=== PATIENT | female | born 1970 | race Caucasian/White ===

== ENCOUNTER → 2021-10-14 15:09 | Outpatient (BNVA) | payer OTHER, SELFPAY | PROVIDERS: PCP Internal Medicine; Visit Provider Nurse Practitioner Family | DX: Z13.89 Encounter for screening for other disorder (principal) ==

== ENCOUNTER 2025-04-22 10:29 | Outpatient (REF) | payer OTHER, SELFPAY ==
[2025-04-22 13:23] LABS: Appearance Urine Turbid; Glucose Urine UA Negative (Negative); PH 6.5 (5.0-9.0); Specific Gravity - Urine >= 1.030 (1.005-1.025)
[2025-04-22 13:33] LABS: MANUAL DIFF FLAG NO
[2025-04-22 13:41] LABS: Hematocrit 43.5 % (37.0-47.0); Hemoglobin 13.7 g/dl (12.0-16.0); Imm Gran Abs Auto 0.01 X10*3/uL (0.00-0.03); Imm Gran Pct Auto 0.2 % (0.0-0.4); Lymphocytes Absolute Auto 1.3 X10*3/uL (1.2-4.9); Mean Corpuscular HGB Conc 31.5 g/dl (31.0-35.0); Mean Corpuscular Hemoglobin 28.4 pg (27.0-33.0); Mean Corpuscular Volume 90.2 fL (80.0-98.0); NRBC Abs Auto 0.000 X10*3/uL (0.0-0.012); NRBC Pct Auto 0.0 /100WBC (0.0-0.2); Platelet Count 246 X10*3/uL (160-400); Red Blood Count 4.82 X10*6/uL (4.20-5.50); White Blood Count 5.4 X10*3/uL (4.8-10.8)
[2025-04-22 14:03] LABS: Alanine Aminotransferase 28 U/L (0-31); Albumin Level 4.5 g/dL (3.5-5.0); Alkaline Phosphatase 77 U/L (39-117); Anion Gap 10 (12-20); Aspartate Amino Transferase 25 U/L (5-31); Blood Urea Nitrogen 18 mg/dL (9-16); Calcium 8.9 mg/dL (8.4-10.2); Carbon Dioxide 29 mmol/L (22-29); Chloride 106 mmol/L (96-108); Cholesterol 199 mg/dL (<200); Estimated Glomerular Filt Rate > 60; HDL Cholesterol 46 mg/dL (>40); Potassium 4.5 mmol/L (3.3-5.1); Sodium 140 mmol/L (135-145); Total Protein 7.4 g/dL (6.5-8.0); Triglycerides 97 mg/dL (<150)
--- OUTSIDE RECORDS SUMMARY | 2025-04-22 14:24 | XMS_ITS | Clinical Summary ---
Author Organization [address] Address [address] [place] [address] Phone Care Team Providers Care Yard Jacker Name Role Phone Kannan Yuan MD Primary Care Provider [phone] Allergies Active Allergy Reactions Criticality Noted Date Comments Other 04/13/2020 Seasonal Medications hydrOXYzine HCL (ATARAX) 25 mg tablet TAKE 1-2 TABLETS BY MOUTH TWICE A DAY NEEDED 10/31/2023 Active albuterol sulfate (ProAir RespiClick) 90 mcg/actuation aerosol powdr breath activated Inhale by mouth. Active acetaminophen (TYLENOL) 500 mg tablet Take 1 Tablet by mouth every 6 hours as needed. Active fluticasone (VERAMYST) 27.5 mcg/actuation nasal spray 2 Sprays by Nasal route daily. 12/05/2023 Active vortioxetine (Trintellix) 20 mg tablet TAKE 1 TABLET BY MOUTH EVERY DAY 05/15/2022 Active cetirizine (ZyrTEC) 10 mg tablet Take 10 mg by mouth daily. Active semaglutide (Wegovy) 1.7 mg/0.75 mL injection penIndications:H ypothyroidism, unspecified type,Class 3 severe obesity without serious comorbidity with body mass index (BMI) of 60.0 to 69.9 in adult, unspecified obesity type (CMS/HCC V24, CMS/HCC V28) Use 1.7mg once weekly 3 mL 5 11/04/2024 Active levothyroxine (SYNTHROID, LEVOTHROID) 25 mcg tablet TAKE 1 TABLET (25 MCG TOTAL) BY MOUTH 1 (ONE) TIME EACH DAY. FOR 60 DAYS 90 tablet 1 02/11/2025 09/10/19 26 Active Active Problems Problem Noted Date Diagnosed Date Low iron 01/29/2019 Blood pressure elevated without history of HTN 1 Depression 03/18/2018 Abnormal blood sugar 2017 Dyslipidemia 2017 Obesity 2017 Obstructive sleep apnea 2017 Overview (05/20/2024): [facility] Polysomnogram: Date 02/24/2021; Wt 405#; BMI 65; SE 58%; SM 79%; REM 0%; RDI 68 (AHI 57), Central apneas 1; Obstructive apneas 44; Mixed apneas 0; hypopneas 212; RERAs 51; average oxygen saturation 95% (lowest 88% - without saturations <88% for 5% or more of study); PLMs 0. - Obstructive Sleep Apnea - severe overall (no REM sleep); mostly hypopneas and obstructive apneas; without sleep related hypoventilation by 2020 polysomnogram. Seasonal allergies 2017 Vitamin D deficiency 2017 Seizure disorder ([facility] V24, [facility] V28) 01/2017 Congenital hydrocephalus ([facility] V24, [facility] V 28) 06/17/2012 Hydrocephalus ([facility] V24, [facility] V28) 012 Encounters Date Type Department Care Team Description 04/13/2025 Results Follow-Up Endocrinology - [address] [phone] Sue Jenkins PA 04/03/2025 Telephone Endocrinology [address] [phone] Sue Jenkins PA from Last 3 Months Immunizations Immunization Administration Dates Next Due Influenza, Unspecified 02/27/2022 Surgical History Surgery Date Site/Laterality Comments BREAST BIOPSY 2010 Left PROCEDURE: BX BREAST; PERC NEEDLE CORE W/IMAG GUID Family History Medical History Relation Name Comments Breast cancer Neg Hx Social History Tobacco Use Types Packs/Day Years Used Date Smoking Tobacco: Never Smokeless Tobacco: Never Alcohol Use Standard Drinks/Week Comments Yes 0 (1 standard drink = 0.6 oz pur e alcohol) Comments No Sex and Gender Information Value Date Recorded Sex Assigned at Not on file Legal Sex Female 8:05 AM EST Gender Identity Not on file Sexual Orientation Not on file Obstetrics History Para Term AB IAB SAB Ectopic Multiple Livin g Live Births 2 2 2 2 Date Outcome GA Total Labor Labor/2nd/3rd Weight Sex Type Anes PTL April A1 A5 Name Clin Term Term Last Filed Vital Signs Vital Sign Reading Time Taken Comments Blood Pressure 153/91 11/04/2024 4:40 PM EDT Pulse 64 11/04/2024 4:40 PM EDT Temperature 36.9 C (98.4 F) 11/04/2024 4:40 PM EDT Respiratory Rate 17 11/04/2024 4:40 PM EDT Oxygen Saturation 98% 09/04/2024 4:22 PM EDT Inhaled Oxygen Concentration - - Weight 176 kg (389 lb) 11/04/2024 4:40 PM EDT Height 167.6 cm (5' 6 ) 11/04/2024 4:40 PM EDT Body Mass Index 62.79 11/04/2024 4:40 PM EDT Plan of Treatment Upcoming Encounters Date Type Department Care Team (Late st Contact Info) Description 09/10/2025 3:15 PM EDT Office Visit Internal Medicine - [address] [place] [phone] Kannan Yuan MD [address] [place] [phone] Health Maintenance Due Date Last Done Comments Colorectal Cancer Screening: Colonoscopy 1970 Hepatitis B Vaccines (1 of 3 - 19+ 3-dose series) 10/31/1987 Cervical Cancer Screening: Pap Smear 1989 Pneumococcal Vaccine: 50+ Years (1 of 1 - PCV) 2018 RSV Immunization Adult Patients (1 - Risk 50-74 years 1-dose series) 2018 HIV Screening 05/27/2022 Hepatitis C Screening 05/27/2022 Social Influencers of Health Screening 05/27/2022 Depression Screening 06/18/2024 Breast Cancer Screening 09/12/2026 09/13/19 25, 02/07/2023, 01/25/2022, Additional history exists Cholesterol Screening (Lipid Panel) 09/12/2029 09/12/2024, 12/04/2023 DTaP,Tdap,and Td Vaccines (2 - Td or Tdap) 02/25/2035 02/25/2025 Zoster Vaccines Completed 07/19/2020, 04/17/2020 COVID-19 Vaccine Completed 02/25/2025, , 08/26/2022, Additional history exists Influenza Vaccine Completed 02/25/2025, , 04/11/2023, Additional history exists HIB Vaccines Aged Out No longer eligi ble based on patient's age to complete this topic HPV Vaccines Aged Out No longer eligi ble based on patient's age to complete this topic Hepatitis A Vaccines Aged Out No long er eligible based on patient's age to complete this topic IPV Vaccines Aged Out No longer eligi ble based on patient's age to complete this topic MMR Vaccines Aged Out No longer eligi ble based on patient's age to complete this topic Meningococcal ACWY Vaccine Aged Out N o longer eligible based on patient's age to complete this topic Meningococcal B Vaccine Aged Out No l onger eligible based on patient's age to complete this topic RSV Immunization Patients Under 20 months Aged Out No longer eligible based on patient's age to complete this topic Varicella Vaccines Aged Out No longer eligible based on patient's age to complete this topic Procedures Procedure Name Priority Date/Time Associated Diagnosis Comments THYROID STIMULATING HORMONE WITH REFLEX TO FREE T4 AND FREE T3 Routine 04/09/2025 10:46 AM EDT Hypothyroidism, unspecified type LIPID PANEL WITH REFLEX TO DIRECT LDL Routine 09/12/2024 3:00 PM EDT Primary hypertension Hypercholesterolemia Acquired hypothyroidism MG MAMMO DIGITAL SCREENING W JUSTO BILAT Routine 09/12/2024 2:37 PM EDT Encounter for screening mammogram for breast cancer from Last 3 Months or Most Recently Relevant to Health Maintenance Results * Thyroid stimulating hormone with reflex to free t4 and free t3 (04/09/2025 10:46 AM EDT) TSH 2.50 0.40 - 4.00 mcIU/mL LAB CHEMISTRY METHOD 04/09/2025 2:[address] [facility] Blood Venous blood specimen / Unknown Venipuncture / Unknown 04/09/2025 10:46 AM EDT 04/09/2025 10:46 AM EDT us Sue VALLADARES LAB BLOOD ORDERABLES Final Resul t [facility] [address] [place] [address], [place] [phone] * (ABNORMAL) Lipid panel with reflex to direct LDL (09/12/2024 3:00 PM EDT) Cholesterol 229(H) 0 - 200 mg/dL LAB CHEMISTRY METHOD 09/12/2024 6:[address] [facility] Triglycerides 84 0 - 150 mg/dL LAB CHEMISTRY METHOD 09/12/2024 6:[address] [facility] HDL 59 >=40 mg/dL LAB CHEMISTRY METHOD 09/12/2024 6:[address] [facility] LDL Calculated 153(H) 0 - 100 mg/dL LAB CHEMISTRY METHOD 09/12/2024 6:[address] [facility] VLDL Cholesterol Luke 16.8 mg/dL LAB CHEMISTRY METHOD 09/12/2024 6:[address] [facility] Non HDL Chol. (LDL+VLDL) 170(H) <145 mg/dL LAB CHEMISTRY METHOD 09/12/2024 6:[address] [facility] Chol/HDL Ratio 3.9 0.0 - 4.4 LAB CHEMISTRY METHOD 09/12/2024 6:55 PM [facility] Blood Venous blood specimen / Unknown Venipuncture / Unknown 09/12/2024 3:00 PM EDT 09/12/2024 3:00 PM EDT us Kannan Yuan MD LAB BLOOD ORDERABLES Final Resul t [facility] [address] [place] [address], [place] [phone] * MG Mammo Digital Screening w Justo bilat (09/12/2024 2:37 PM EDT) Anatomical Region Laterality Modality Breast Bilateral Mammography 09/15/2024 8:16 AM EDT Impressions 09/15/2024 8:22 AM EDT Benign. BI-RADS CATEGORY: 1 - NEGATIVE RECOMMENDATION: Screening bilateral mammogram is recommended in 1 year. Mammo Location: [facility], [address] [place] [address], [address], . -------- FINAL REPORT -------- Dictated By: Ana Pendleton Dictated Date: 09/15/2024 08:16 ET Assigned Physician: Ana Pendleton Reviewed and Electronically Signed By: Ana Pendleton Signed Date: 09/15/2024 08:22 ET Workstation ID: [id number] Transcribed By: Self Edit Transcribed Date: 09/15/2024 08:16 ET Narrative 09/15/2024 8:22 AM EDT CLINICAL: 53 years old, Female, routine annual exam. COMPARISON: Mammograms dating back to 01/20/2021 with most recent of 02/07/2023. TECHNIQUE: Bilateral MLO and CC views were obtained digitally with 3-D mammogram (digital breast tomosynthesis). Computer-aided detection was utilized in evaluation of this exam (CAD). FINDINGS: There is no evidence of suspicious mass or architectural distortion. No worrisome calcifications are evident. There is a biopsy clip in the retroareolar left breast. There has been no significant change from prior exam(s). BREAST DENSITY: B - There are scattered areas of fibroglandular density. Procedure Note Ana Pendleton MD - 09/15/2024 CLINICAL: 53 years old, Female, routine annual exam. COMPARISON: Mammograms dating back to 01/20/2021 with most recent of02/07/2023. TECHNIQUE: Bilateral MLO and CC views were obtained digitally with 3-Dmammogram (digital breast tomosynthesis). Computer-aided detection wasutilized in evaluation of this exam (CAD). FINDINGS: There is no evidence of suspicious mass or architectural distortion. Noworrisome calcifications are evident. There is a biopsy clip in theretroareolar left breast. There has been no significant change from priorexam(s). BREAST DENSITY: B - There are scattered areas of fibroglandular density. IMPRESSION: Benign. BI-RADS CATEGORY: 1 - NEGATIVE RECOMMENDATION: Screening bilateral mammogram is recommended in 1 year. Mammo Location: [facility], [address] [place] [address], [address], . -------- FINAL REPORT -------- Dictated By: Ana Pendleton Dictated Date: 09/15/2024 08:16 ET Assigned Physician: Ana Pendleton Reviewed and Electronically Signed By: Ana Pendleton Signed Date: 09/15/2024 08:22 ET Workstation ID: [id number] Transcribed By: Self Edit Transcribed Date: 09/15/2024 08:16 ET Bev Paniagua MD IMG BI PROCEDURES Final Resu lt from Last 3 Months or Most Recently Relevant to Health Maintenance Insurance [employer] Care Teams Yard Jacker Relationship Specialty Start Date End Date Kannan Yuan MD [address] [place] [address] PCP - General Internal Medicine 07/28/24
--- OUTSIDE RECORDS SUMMARY | 2025-04-22 14:24 | XMS_ITS | Encounter Summary ---
Author Organization [facility] Address [address] [place] [address] Care Team Providers Care Ear Nose Throat Surgeon Name Role Phone Kannan Yuan MD Primary Care Provider [phone] Reason for Visit * Reason Onset Date Comments provider call back 04/03/2025 Encounter Details Date Type Department Care Team (Late st Contact Info) Description 04/03/2025 Telephone Endocrinology - [place] [address], [place] [phone] Sue Jenkins PA [address], [place] Social History Tobacco Use Types Packs/Day Years Used Date Smoking Tobacco: Never Smokeless Tobacco: Never Alcohol Use Standard Drinks/Week Comments Yes 0 (1 standard drink = 0.6 oz pur e alcohol) Comments No Sex and Gender Information Value Date Recorded Sex Assigned at Not on file Legal Sex Female 8:05 AM EST Gender Identity Not on file Sexual Orientation Not on file documented as of this encounter Progress Notes * Shayy Kern RN - 04/03/2025 4:24 PM EDT Called patient C/o increase hair shedding TSH to be drawn Will await results * Shanelle Hackett - 04/03/2025 1:25 PM EDT Endocrine Call Primary endocrine provider: Sue [place] PA-C Is the endocrine provider in the office toady?: no Who is calling? The patient. If not the patient or parent/guardian please check for authorization to share/verbal release. Why is the person calling? Symptoms/side effects. Symptom: Patient is taking levothyroxine 25 mcg, and states she doesn't feel it is working. She is still losing a lot of hair, and is wondering if she can have her dose increased? She is wondering if taking an additional pill or half a pill would help. Patient is requesting call back to advised provider may want to see her. CLAUDETTE October 2024. NOT chestpain, shortness of breath, palpitations, severe dizziness. Please forward to endocrine nurse pool (p [phone]). documented in this encounter Plan of Treatment Upcoming Encounters Date Type Department Care Team ([facility] st Contact Info) Description 09/10/2025 3:15 PM EDT Office Visit Internal Medicine - [place] [address] [phone] Kannan Yuan MD [address] [place] [phone] documented as of this encounter Visit Diagnoses Not on filedocumented in this encounter Care Teams Ear Nose Throat Surgeon Relationship Specialty Start Date End Date Kannan Yuan MD [address] [place] [id number] PCP - General Internal Medicine 07/28/24 documented as of this encounter
== END 2025-04-22 10:30 | disposition home or self-care (01) ==
LOC: HO.HMGCLDS 10:29
PROVIDERS: PCP Internal Medicine; Visit Provider Internal Medicine
DX: E66.01 Morbid (severe) obesity due to excess calories (principal); K42.9 Umbilical hernia without obstruction or gangrene; E03.9 Hypothyroidism, unspecified; J45.909 Unspecified asthma, uncomplicated; R03.0 Elevated blood-pressure reading, without diagnosis of hypertension; Z68.44 Body mass index [BMI] 60.0-69.9, adult; Z79.890 Hormone replacement therapy; Z79.899 Other long term (current) drug therapy
CPT/HCPCS: 36415; 80053; 80061; 81001; 82306; 84443; 85025; 96127

== ENCOUNTER 2025-04-22 10:29 | Outpatient (AMB) | payer OTHER, SELFPAY ==
--- OUTSIDE RECORDS SUMMARY | 2024-07-03 03:30 | XMS_ITS ---
[facility] Organization [facility] [place] Address [address] [place] [address] Care Team Providers Care Zookeeper Name Role Phone Kwabena DANIELSON, Kannan Primary Care Provider Unavailab Janet Jorge Unavailable [phone] Encounters Encounter Location Date Provider Diagnosis [address] [place] [address] 07/03/2024 Janet Juarez Plan Of Treatment No Information Progress Notes * ARCHIEHerve JACKSONalmamagdiDOB:1970 (54 yo F)Acc No.[id number]:07/03/2024 Progress Notes Patient: Chapis PHELPS Provider: Omero Juarez DPM :1970 A ge:53 Y S ex:Female Date:07/03/2024 Address:[address] [place], [place] [id number] Pcp:Kannan Yuan MD Subjective: * Chief Complaints: * * Medical History: Objective: * Vitals: Assessment: Plan: * Treatment: * Images: * The named appointment provid er may or may not be the originator of this progress note, and it is not deemed complete until electronically signed by the appointment provider. Sign off status: Pending * Provider: Omero Juarez DPM Date: 0 07/03/2024 Generated for Tierney hanley/Lamar/Yosefitting on: 06/22/2024 12:14 PM EST
[2025-04-22 10:33] VITALS: BP 130/94; PULSE 66; RESP 16; TEMP 36.3; O2SAT 97; BMI 63.1
--- NOTE | 2025-04-22 10:33 | MHC.PC.OV ---
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 Intake Note: Pt is here today for New patient. Pt states that she had a fall last week. Allergies No Known Allergies Allergy (Verified 04/22/25 10:38) Medication List - Last Reconciled 04/22/25 by Dione Hernandez MD acetaminophen (Tylenol) 325 mg PO QID PRN albuterol sulfate 90 mcg/actuation (Ventolin HFA) 2 puffs inhalation Q6H PRN calcium citrate-vitamin D3 315 mg-6.25 mcg (250 unit) (Citracal + Vitamin D Maximum) 1 tab PO DAILY fluticasone propionate 50 mcg/actuation (Allergy Relief (fluticasone)) 1 spray intranasal DAILY hydroxyzine HCl 25 mg PO BEDTIME levothyroxine 25 mcg PO DAILY vortioxetine (Trintellix) 20 mg PO DAILY Tobacco use date assessed: 04/22/25 Dental Screening Dental Screen Date: 04/22/25 Did you have a dental visit in the last 12 months?: Yes Did you have a dental problem in the last 6 months where you did not have access to dental care?: No Was dental information given to patient?: Patient has dentist HPI 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 Pt complains of allergic umbilical hernia and would like to be referred to surgeon to discuss the repair. Past medical history includes chronic depression controlled on current medications and patient is established with Psychiatry. She has been taking levothyroxine for hypothyroidism and albuterol on and off for mild asthma. Patient has been trying to lose weight for many years trying different programs including weight watchers. Patient has been decreasing caloric intake and increasing exercise for 6 months. She took Wegovy for few months and lost weight but had difficulties getting it through her insurance. [facility] Medical History Asthma Hx of screening mammography Normal pelvic exam Morbid obesity NICOLASA on CPAP Urinary incontinence Depression Surgical History Hx of colonoscopy No pertinent past surgical history Family History (Updated 04/22/25 @ 11:08 by Dione Hernandez MD) Father HTN (hypertension) Mental health disorder Vascular dementia, Onset Age: 70 Mother Heart problem Social History Housing: House Alcohol intake: never Patient Tobacco Use Status: Never used Tobacco e-Cigarette/Vaping Use: Never Used service: No Current occupational status: retired Cognitive needs: No Hearing needs: No Vision needs: Yes Questionnaire PHQ-9 Over the last 2 weeks, how often have you been bothered by any of the following problems? 1. Little interest or pleasure in doing things: several days 2. Feeling down, depressed, or hopeless: several days 3. Trouble falling or staying asleep, or sleeping too much: not at all 4. Feeling tired or having little energy: more than half the days 5. Poor appetite or overeating: not at all 6. Feeling bad about yourself - or that you are a failure or have let yourself or your family down: several days 7. Trouble concentrating on things, such as reading the newspaper or watching television: several days 8. Moving or speaking so slowly that other people could have noticed. Or the opposite - being so fidgety or restless that you have been moving around a lot more than usual: not at all 9. Thoughts that you would be better off or of hurting yourself in some way: several days Total score: 7 Depression Screening Interpretation: Negative Depression Screening Done: Yes 39694 - PHQ-9 Billing: Yes Source: Developed by Drs. Olvin Chester, Margarette Santiago, Kt Hernandez and colleagues, with an educational juan a from [employer]. Thrive Questionnaire Date Thrive assessed: 04/22/25 I am a: Patient What is your living situation today?: I have a steady place to live Within the past 12 months, did the food you bought not last and you didn't have the money to get more?: Sometimes True Within the past 12 months, did you worry whether your food would run out before you got money to buy more?: Sometimes True Do you have trouble paying for medicines?: Yes Do you have trouble getting transportation to medical appointments?: No Do you have trouble paying your heating and electricity bill?: No Do you have trouble taking care of your child, family member or friend?: No Do you have trouble with day-to-day activities such as bathing, preparing meals, shopping, managing finances, etc.?: No Are you currently unemployed and looking for a job?: Yes Are you interested in more education?: No THRIVE Score: 2 AUDIT C Alcohol Use Questionnaire (AUDIT-C) 1. How often do you have a drink containing alcohol?: Monthly or less 2. How many drinks containing alcohol do you have on a typical day when you are drinking?: 1 or 2 3. How often do you have six or more drinks on one occasion?: Never Total Score: 1 DMITRI-7 AMB Questionnaire DMITRI-7 Date DMITRI - 7 assessed: 04/22/25 Feeling nervous, anxious, or on edge: 1 = Several days Not being able to stop or control worryin = Several days Worrying too much about different things: 1 = Several days Trouble relaxin = Several days Being so restless that it is hard to sit still: 0 = Not at all Becoming easily annoyed or irritable: 0 = Not at all Feeling afraid as if something awful might happen: 0 = Not at all Total DMITRI-7 score (0-4 normal; 5-9 mild; 10-14 moderate; 15-21 severe): 4 Source: Developed by Drs. Olvin Chester, Margarette Santiago, Kt Hernandez and colleagues, with an educational juan a from [employer]. DMITRI-7 Assessment Billing DMITRI-7 Assessment Tool: DMITRI-7 Assessment 70489 Review of Systems Const All systems reviewed & are unremarkable except as noted in HPI and below Eyes Reports no additional complaints ENT Reports no additional complaints Card Reports no additional complaints Resp Reports no additional complaints GI Reports no additional complaints Reports no additional complaints Physical exam (Primary Care) Vital Signs: Last Vital Signs Temp 97.4 F 04/22/25 10:33 Pulse 66 04/22/25 10:33 Resp 16 04/22/25 10:33 BP 130/94 H 04/22/25 10:33 Pulse Ox 97 04/22/25 10:33 Oxygen Delivery Method Room Air 04/22/25 10:33 BMI result Body Mass Index 63.1 Tobacco/Smoking Status: Tobacco use Status Tobacco use date assessed 04/22/25 04/22/25 10:46 Patient Tobacco Use Status Never used Tobacco 04/22/25 10:46 e-Cigarette/Vaping Use Never Used 04/22/25 10:46 PHQ-9: PHQ-9 Score PHQ-9: Total score 7 04/22/25 11:13 Depression Screening Interpretation: Negative Thrive Assessment: Date of Thrive Assessment Date Thrive assessed 04/22/25 04/22/25 10:46 Const General: no acute distress HENMT Head: Yes normal to inspection Face and sinus: Yes normal facial exam Mouth: Normal oral and palatal mucosa present Throat: Yes posterior oropharynx normal Eyes General: appearance normal, both eyes and all related structures Neck Neck: Yes no lymphadenopathy and Yes supple Resp Effort & Inspection: normal respiratory effort Auscultation: clear to auscultation bilaterally Cardio Rhythm: regular rhythm Heart sounds: S1 normal heart sound present and S2 normal heart sound present GI Other: Large umbilical hernia reducible Inspection: Yes normal to inspection Palpation (GI): Soft to palpation Percussion: Yes normal to percussion Auscultation: normal bowel sounds Coding Level of Care Code New Pt Prev Care 40-64y(65903) Diagnoses Asthma J45.909 Morbid obesity E66.01 Umbilical hernia K42.9 Hypothyroid E03.9 Elevated blood pressure reading in office without diagnosis of hypertension R03.0 Additional Codes DMITRI-7 Assessment Billing - DMITRI-7 Assessment Tool: DMITRI-7 Assessment 38801 ([id number]) PHQ-9 - 29615 - PHQ-9 Billing: Yes ([id number]) Assessment & Plan Assessment & Plan (1) Asthma: Comment: mild, uses Albuterol Code(s): J45.909 - Unspecified asthma, uncomplicated Category: Medical Plan: Continue albuterol PRN (2) Morbid obesity: Comment: f/u with endo Dr. Gregory Rubalcava tried Wegovy Code(s): E66.01 - Morbid (severe) obesity due to excess calories Category: Medical Plan: Decreasing caloric intake increasing physical activity discussed with the patient she will check with her insurance coverage for Wegovy or Zepbound (3) Umbilical hernia: Code(s): K42.9 - Umbilical hernia without obstruction or gangrene Category: Medical Plan: Referred to surgeon (4) Hypothyroid: Code(s): E03.9 - Hypothyroidism, unspecified Category: Medical Plan: Continue levothyroxine check TSH level (5) Elevated blood pressure reading in office without diagnosis of hypertension: Code(s): R03.0 - Elevated blood-pressure reading, without diagnosis of hypertension Category: Medical Plan: Patient has been monitoring her blood pressure at home and reports normal readings. Low-sodium diet increase exercise weight loss discussed with the patient she was advised to continue monitoring her blood pressure and follow-up in 1 month Orders: Orders Comprehensive [place]. Panel Fast Today E03.9 - Hypothyroidism, unspecified, E66.01 - Morbid (severe) obesity due to excess calories, K42.9 - Umbilical hernia without obstruction or gangrene TSH reflex Free T4 Today E03.9 - Hypothyroidism, unspecified, E66.01 - Morbid (severe) obesity due to excess calories, K42.9 - Umbilical hernia without obstruction or gangrene Lipid Panel Today E03.9 - Hypothyroidism, unspecified, E66.01 - Morbid (severe) obesity due to excess calories, K42.9 - Umbilical hernia without obstruction or gangrene Vitamin D 25-OH Total Today E03.9 - Hypothyroidism, unspecified, E66.01 - Morbid (severe) obesity due to excess calories, K42.9 - Umbilical hernia without obstruction or gangrene Complete Blood Count Auto Diff Today E03.9 - Hypothyroidism, unspecified, E66.01 - Morbid (severe) obesity due to excess calories, K42.9 - Umbilical hernia without obstruction or gangrene UA w Microscopic Today E03.9 - Hypothyroidism, unspecified, E66.01 - Morbid (severe) obesity due to excess calories, K42.9 - Umbilical hernia without obstruction or gangrene Referrals General Surgery Referral K42.9 - Umbilical hernia without obstruction or gangrene Medications: New albuterol sulfate 90 mcg/actuation (Ventolin HFA) 2 puffs inhalation Q6H PRN 8.5 grams 3RF bronchospasm
--- OUTSIDE RECORDS SUMMARY | 2025-04-22 12:14 | XMS_ITS | Patient Health Record ---
Author Organization [facility] Address [address] [place] [address] Care Team Providers Care Computer Instructor Name Role Phone Kannan Yuan MD Primary Care Provider UnavailJanet Osorio Unavailable [phone] Reason For Referral No Information Encounters Encounter Location Date Provider Diagnosis [facility] [address] [place] [address] 05/20/2024 Janet Juarez Plan Of Treatment No Information Insurance Providers Payer Name Payer Address Payer Phone Subscriber Number Group Number Insured Name Patient Relationship to Insured Coverage Start Date Coverage End Date [employer] ([facility]) [address] [place] [address] [id number] Chapis Louis Self - patient is the insured
== END 2025-04-22 11:34 | disposition home or self-care (01) ==
LOC: HO.HMCC 10:30
PROVIDERS: PCP Internal Medicine; Visit Provider Internal Medicine
DX: Z00.00 Encounter for general adult medical examination without abnormal findings (principal); J45.909 Unspecified asthma, uncomplicated; E66.01 Morbid (severe) obesity due to excess calories; Z68.44 Body mass index [BMI] 60.0-69.9, adult; K42.9 Umbilical hernia without obstruction or gangrene; E03.9 Hypothyroidism, unspecified; R03.0 Elevated blood-pressure reading, without diagnosis of hypertension

== ENCOUNTER 2025-06-01 10:39 | Outpatient (AMB) | payer OTHER, SELFPAY ==
--- NOTE | 2025-06-01 10:40 | A.OFFVIS_ITS ---
Vital Signs 3 06/01/25 10:46 Height 5 ft 4 in Weight 389 lb BMI 66.8 BP not taken reason Medical Reason Intake Visit Reasons: Umbilical hernia Intake Note: Patient is seen in office for evaluation of an umbilical hernia. Pt c/o: feels a lump on the umbilical area since 2019, unsure of increase/decrease, admits to pain/uncomfortable, constipation and diarrhea on and off, denies any other symptoms Slasher Sawyer Required: No Accompanied by: Self / Same As Patient Allergies No Known Allergies Allergy (Verified 06/01/25 10:52) HPI Comments Details: 54-year-old female patient presenting for evaluation of a large umbilical hernia. This has been present for many years and has gradually increased in size. She now is noting increased discomfort associated with the hernia especially with increased activity. She denies nausea, vomiting, fever or chills but does report diarrhea alternating with constipation. The hernia does reduce in size when in the supine position but immediately is noticeable with standing. She denies any previous surgical procedures in this location. She is asthmatic and has been doing some coughing which may be aggravating the hernia. [facility] Medical History Asthma Hx of screening mammography Normal pelvic exam Morbid obesity NICOLASA on CPAP Urinary incontinence Depression Surgical History Hx of colonoscopy No pertinent past surgical history Family History Father HTN (hypertension) Mental health disorder Vascular dementia, Onset Age: 70 Mother Heart problem Social History Housing: House Alcohol intake: never Patient Tobacco Use Status: Never used Tobacco e-Cigarette/Vaping Use: Never Used service: No Current occupational status: retired Cognitive needs: No Hearing needs: No Vision needs: Yes Review of Systems Const All systems reviewed & are unremarkable except as noted in HPI and below Physical Exam Vital Signs: BMI result Body Mass Index 66.8 Const General: cooperative and no acute distress Nutritional Appearance: obese Orientation/consciousness: patient oriented x3 Limitations: no limitations HEENT Head: Yes normocephalic and Yes atraumatic Ears: hearing grossly normal bilaterally Resp Effort & Inspection: normal respiratory effort, no audible wheezes, no cough and no respiratory distress Cardio Jugular venous distension: no JVD GI Inspection: Yes normal to inspection and Yes Abdominal panniculus present Palpation (GI): Soft to palpation, nontender, no guarding and not rigid Percussion: Yes normal to percussion Auscultation: normal bowel sounds Abdomen image: 2 1. 10 cm umbilical hernia to the left of midline which increases with Valsalva but reduces with light pressure. No tenderness to palpation. Skin Other: Warm, dry, no rash Neuro General: patient oriented x3 Extrem General: Yes no clubbing, cyanosis or edema Assessment & Plan Assessment & Plan (1) Umbilical hernia: Code(s): K42.9 - Umbilical hernia without obstruction or gangrene Category: Medical Qualifiers: Obstruction and gangrene presence: without obstruction or gangrene Q ualified Code(s): K42.9 - Umbilical hernia without obstruction or gangrene Plan 54-year-old female patient presenting with a large umbilical hernia which increases with Valsalva maneuvers then reduces with light pressure. This has been present for several years and appears to be increasing in size and pain. On examination she is noted to have a 10 cm reducible umbilical hernia. I recommended repair of this umbilical hernia with mesh and after discussing the risks, alternatives and benefits, she consents to the surgery. She will be scheduled as a short-stay surgery. She understands that she will be unable to lift greater than 10 lb for the 1st month following the surgery. Orders: Referrals 2 General Surgery Procedure Notification K42.9 - Umbilical hernia without obstruction or gangrene Coding Level of Care Code New Pt Level 4 (49203) Diagnoses Umbilical hernia without obstruction and without gangrene K42.9 Obstruction and gangrene presence: without obstruction or gangrene
[2025-06-01 10:46] VITALS: BMI 66.8
== END 2025-06-01 11:04 | disposition home or self-care (01) ==
LOC: HO.HGS 10:39
PROVIDERS: PCP Internal Medicine; Visit Provider Surgery
DX: K42.9 Umbilical hernia without obstruction or gangrene (principal)
CPT/HCPCS: 99204